=== PATIENT | male | born 1985 | race Caucasian/White ===

== ENCOUNTER → 2023-06-20 09:48 | Outpatient (BNVA) | payer MEDICARE, SELFPAY | PROVIDERS: Visit Provider Family Medicine | DX: E66.9 Obesity, unspecified; Z68.41 Body mass index [BMI] 40.0-44.9, adult; I10 Essential (primary) hypertension | CPT/HCPCS: 80053; 84439; 84443; 85025 ==

== ENCOUNTER 2023-07-17 13:30 | Outpatient (CLI) | payer MEDICARE, SELFPAY | END 2023-07-17 13:31 | disposition home or self-care (01) | LOC: SLEEP 07-18 13:02 | PROVIDERS: Visit Provider Family Medicine | DX: G47.33 Obstructive sleep apnea (adult) (pediatric) (principal) | CPT/HCPCS: G0399 ==

== ENCOUNTER → 2024-09-05 13:22 | Outpatient (BNVA) | payer MEDICARE, SELFPAY | PROVIDERS: PCP Clinical Nurse Specialist Adult Health; Visit Provider Clinical Nurse Specialist Adult Health | DX: I10 Essential (primary) hypertension (principal); R03.0 Elevated blood-pressure reading, without diagnosis of hypertension; E66.01 Morbid (severe) obesity due to excess calories | CPT/HCPCS: 80053; 80061; 83036; 84443; 85025 ==